=== PATIENT | female | born 1935 ===

== ENCOUNTER 2019-03-29 19:07 | Inpatient (IN) | payer MEDICARE, MEDICAID ==
[2019-03-29 19:07] VITALS: BMI 21.2
[2019-03-29 21:18] LABS: BASO % 0.5 % (0.0-2.0); EOS % 0.7 % (0.0-4.0); LYMPH # 0.6 K/uL (1.0-4.3); LYMPH % 12.2 % (20.0-40.0); MEAN CELL VOLUME 92.3 fl (81.0-99.0); MEAN CORPUSCULAR HEMOGLOBIN 29.2 pg (27.0-31.0); MEAN CORPUSCULAR HGB CONC 31.6 g/dL (33.0-37.0); MEAN PLATELET VOLUME 11.9 fl (7.2-11.7); MONO # 0.2 K/uL (0.0-0.8); MONO % 4.6 % (0.0-10.0); NRBC % 0.1 % (0.0-0.0); RBC 3.09 Mil/uL (3.80-5.20); RED CELL DISTRIBUTION WIDTH 19.2 % (11.5-14.5); WHITE BLOOD COUNT 4.9 K/uL (4.8-10.8)
[2019-03-29 21:25] LABS: INR 1.5; PROTHROMBIN TIME 17.1 Seconds (9.8-13.1)
[2019-03-29 21:27] LABS: ALB/GLOB RATIO 0.7 (1.0-2.1); ALBUMIN 3.3 g/dL (3.5-5.0); ALT/SGPT 45 U/L (9-52); AST/SGOT 73 U/L (14-36); BLOOD UREA NITROGEN 26 mg/dl (7-17); CALCIUM 8.1 mg/dL (8.4-10.2); GFR NON-AFRICAN AMERICAN > 60; PARTIAL THROMBOPLASTIN TIME 32.1 Seconds (25.6-37.1)
--- NOTE | 2019-03-29 22:09 | ED PDOC ---
HPI: Altered Mental Status Time Seen by Provider: 03/29/19 19:17 Chief Complaint (Nursing): Altered Mental Status Chief Complaint (Provider): fatigue Additional Complaint(s): pt minimally conversive at baseline. reported to EMS that pt is more tired and fatigued than her baseline. Past Medical History Reviewed: Historical Data, Nursing Documentation, Vital Signs Vital Signs: Last Vital Signs Temp 97.7 F 03/29/19 19:11 Pulse 78 03/29/19 19:11 Resp 18 03/29/19 19:11 BP 149/90 03/29/19 19:11 Pulse Ox 100 03/29/19 19:11 Primary Care Provider: Fahad Haque - Medical History PMH: Arthritis (SJOGRENS SYNDROME), Cardia Arrhythmia (afib on coumadin at home), CHF, Dementia, Depression, HTN, Hypercholesterolemia, Hypothyroidism Denies: Alzheimer's Disease, Anemia, Anxiety, Asthma, Bipolar Disorder, Bronchitis, COPD, Crohn's Disease, Diverticulitis, Emphysema, Fibromyalgia, Fr actures, Gastrointestinal Ulcer, Gall Bladder Disease, HIV, Hyperthyroidism, Kidney Stones, Migraine, Mitral Valve Prolapse, Osteoporosis, Pancreatitis, Paranoia, Parkinson's Disease, Peripheral Edema, Pneumonia, Post Traumatic Stress Disorder, Chronic Kidney Disease, Schizophrenia, Seizures, Sickle Cell Disease, Sexually Transmitted Disease, Sleep Apnea, TIA - Surgical History Surgical History: Denies: Appendectomy, Cholecystectomy, Coronary Stent, Pacemaker - Family History Family History: States: Unknown Family Hx - Living Arrangements Living Arrangements: Longterm/Assist Lvng - Immunization History Hx Tetanus Toxoid Vaccination: No Hx Influenza Vaccination: No Hx Pneumococcal Vaccination: No - Home Medications Home Medications: Ambulatory Orders Medication Instructions Recorded Apixaban [Eliquis] 2.5 mg PEG DAILY 07/06/17 Atorvastatin [Lipitor] 80 mg PEG DAILY 07/06/17 Carvedilol [Coreg] 25 mg PEG BID 07/06/17 Levothyroxine [Synthroid] 50 mcg PEG DAILY 07/06/17 cycloSPORINE [Restasis] 0.05 % OP DAILY 07/06/17 Memantine [Namenda] 10 mg PEG BID 09/03/17 Acetaminophen [Tylenol (Renal)] 650 mg PEG Q4 PRN 03/30/19 Acetaminophen [Tylenol (Renal)] 650 mg PEG Q4 PRN 03/30/19 Aspirin [Ecotrin] 81 mg PEG DAILY 03/30/19 Bisacodyl [Fast Relief Laxative] 10 mg DE DAILY PRN 03/30/19 Clonidine [Catapres-Tts 1] 1 patch TOP QWK 03/30/19 Doxycycline Oral Susp [Vibramycin 50 mg PEG Q12 03/30/19 Oral Susp] Famotidine [Pepcid] 20 mg PEG DAILY 03/30/19 Lisinopril [Zestril] 20 mg PEG DAILY 03/30/19 Magnesium Hydroxide [Milk Of 30 ml PEG HS PRN 03/30/19 Magnesia] Multivit,Tx with Iron,Minerals 1 tab PEG DAILY 03/30/19 [Therems-M] Pilocarpine [Salagen Tab] 5 mg PEG DAILY 03/30/19 amLODIPine [Norvasc] 5 mg PEG DAILY 03/30/19 - Allergies Allergies/Adverse Reactions: Allergies Allergy/AdvReac Type Severity Reaction Status Date / Time No Known Allergies Allergy Verified 03/29/19 19:15 Review of Systems Review Of Systems: ROS cannot be obtained secondary to pt's inabilty to answer questions. Physical Exam - Reviewed Nursing Documentation Reviewed: Yes Vital Signs Reviewed: Yes - Physical Exam Appears: Positive for: Non-toxic, No Acute Distress Head Exam: Positive for: ATRAUMATIC, NORMOCEPHALIC Skin: Positive for: Warm, Dry, Pallor Eye Exam: Positive for: EOMI, PERRL ENT: Positive for: Other (tacky mucus membranes) Neck: Positive for: Painless ROM, Supple Cardiovascular/Chest: Positive for: Regular Rate, Rhythm. Negative for: Murmur Respiratory: Positive for: Normal Breath Sounds. Negative for: Respiratory Distress Gastrointestinal/Abdominal: Positive for: Soft. Negative for: Tenderness Extremity: Positive for: Normal ROM, Other (moving extremities in response to pain equally). Negative for: Deformity Neurological/Psych: Positive for: Lethargic, Other (localizing pain, nonverbal). Negative for: Oriented, Motor/Sensory Deficits, Facial Droop - Laboratory Results Result Diagrams: 03/29/19 21:04 03/29/19 21:04 Lab Results: PT 17.1 Seconds (9.8-13.1) H 03/29/19 21:04 INR 1.5 03/29/19 21:04 APTT 32.1 Seconds (25.6-37.1) 03/29/19 21:04 Troponin I 0.0220 ng/mL (0.00-0.120) 03/29/19 21:04 Total Bilirubin 0.6 mg/dl (0.2-1.3) 03/29/19 21:04 AST 73 U/L (14-36) H 03/29/19 21:04 ALT 45 U/L (9-52) 03/29/19 21:04 Alkaline Phosphatase 88 U/L (38-126) 03/29/19 21:04 Total Protein 7.8 G/DL (6.3-8.2) 03/29/19 21:04 Albumin 3.3 g/dL (3.5-5.0) L 03/29/19 21:04 Globulin 4.5 gm/dL (2.2-3.9) H 03/29/19 21:04 Albumin/Globulin Ratio 0.7 (1.0-2.1) L 03/29/19 21:04 - ECG O2 Sat by Pulse Oximetry: 100 Medical Decision Making Medical Decision Makin CT Head W/O Contrast FINDINGS: BRAIN: No acute intraparenchymal hemorrhage. No mass lesion. No CT evidence for acute territorial infarct. No midline shift or extra-axial collections. There is moderate diffuse age-appropriate cerebral and cerebellar atrophy noted. A zone of decreased attenuation is seen primarily involving the white matter tracts in the left frontal region. These findings are thought probably compatible with old ischemic infarction. There are bilateral periventricular and subcortical white matter hypolucencies compatible with mild chronic microvascular disease. VENTRICLES: No hydrocephalus. VASCULAR: Atherosclerotic vascular plaquing is seen within the carotid siphons bilaterally. ORBITS: The orbits are unremarkable. SINUSES AND MASTOIDS: The paranasal sinuses and mastoid air cells are clear. BONES: No fracture. SOFT TISSUES: Unremarkable. IMPRESSION: 1. No acute intracranial abnormality. 2. Moderate age-appropriate cerebral and cerebellar atrophy noted. 3. Evidence of mild chronic microvascular disease. 4. 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 2199 Labs cw mild anemia and mild renal insufficiency and hypothyroid (increasing TSH) DW Dr Smith for Dr Bhakta. Disposition - Clinical Impression Clinical Impression: Hypothyroid, Altered mental status Counseled Patient/Family Regarding: Studies Performed, Diagnosis - Disposition Disposition Time: 23:00 Condition: FAIR
[2019-03-30 03:48] LABS: T3 0.765 nmol/L (1.49-2.60)
[2019-03-30] MEDS ORDERED: Magnesium Hydroxide Susp 30 ml UD PEG PRN (06:36)
[2019-03-30] MEDS ORDERED: Acetaminophen 650mg/20.3ml solution UD PEG PRN ×2 (06:36)
[2019-03-30] MEDS: Levothyroxine 75 MCG TAB PEG SCH (07:13)
[2019-03-30] MEDS ORDERED: CYCLOSPORINE 0.05% OP SCH (09:00)
[2019-03-30] MEDS: Multivitamin With Minerals Tab PO SCH (09:29)
[2019-03-30] MEDS: Famotidine 40 MG/5 ML PEG SCH (09:29)
--- NOTE | 2019-03-30 10:12 | CT ---
Date of service: 03/29/2019 PROCEDURE: CT HEAD WITHOUT CONTRAST. HISTORY: Weakness COMPARISON: No prior study available comparison. TECHNIQUE: Axial computed tomography images were obtained through the head/brain without intravenous contrast. Radiation dose: Total exam DLP = 725.14 mGy-cm. This CT exam was performed using one or more of the following dose reduction techniques: Automated exposure control, adjustment of the mA and/or kV according to patient size, and/or use of iterative reconstruction technique. FINDINGS: HEMORRHAGE: No acute parenchymal, subarachnoid nor extra-axial hemorrhage. BRAIN: Extensive and severe chronic periventricular white matter ischemic changes with more discrete large chronic left frontal lobe infarct. There also chronic appearing bilateral basal nuclei infarcts Moderate to significant generalized volume loss. VENTRICLES: No obstructive hydrocephalus. CALVARIUM: No acute calvarial fractures. PARANASAL SINUSES: Unremarkable as visualized. No significant inflammatory changes. MASTOID AIR CELLS: Opacification both mastoid air complexes with partial opacification of both middle ear canals. Mild mucosal thickening ethmoid air complex. Frontal sinuses are hypoplastic.. OTHER FINDINGS: None. IMPRESSION: Extensive and severe chronic periventricular white matter ischemic changes with more discrete large chronic left frontal lobe infarct. There also chronic appearing bilateral basal nuclei infarcts Moderate to significant generalized volume loss.
--- NOTE | 2019-03-30 10:21 | RAD ---
Date of service: 03/29/2019 HISTORY: wewakness COMPARISON: No prior. TECHNIQUE: 1 view obtained. FINDINGS: LUNGS: Hazy opacity in the right mid to lower lung field consistent with some combination of small to medium-sized effusion and mild atelectasis and or infiltrate. Suspect mild left basilar atelectasis. PLEURA: No significant pleural effusion identified, no pneumothorax apparent. CARDIOVASCULAR: There is aortic atherosclerotic calcification present. Cardiomegaly.. No pulmonary vascular congestion. OSSEOUS STRUCTURES: No significant abnormalities. VISUALIZED UPPER ABDOMEN: Normal. OTHER FINDINGS: None. IMPRESSION: Hazy opacity in the right mid to lower lung field consistent with some combination of small to medium-sized effusion and mild atelectasis and or infiltrate. Suspect mild left basilar atelectasis.
--- NOTE | 2019-03-30 11:48 | CARD ---
APPROVED REPORT Date of service: 03/29/2019 EKG Measurement Heart [id number] <Conclusion> Atrial fibrillation Nonspecific T wave abnormality Abnormal ECG
--- NOTE | 2019-03-30 12:28 | CARD ---
APPROVED REPORT Date of service: 03/30/2019 EXAM: Two-dimensional and M-mode echocardiogram with Doppler and color Doppler. Other Information Quality : AverageRhythm : Atrial FibrillationNSR INDICATION Hypertension/HCVD Congestive Heart Failure 2D DIMENSIONS IVSd0.89 (0.7-1.1cm)LVDd3.71 (3.9-5.9cm) LVOT Diameter1.71 (1.8-2.4cm)PWd1.48 (0.7-1.1cm) IVSs1.08 (0.8-1.2cm)LA Tjitel48 (18-58mL) LVDs3.11 (2.5-4.0cm)FS (%) 16.1 % PWs1.41 (0.8-1.2cm)SV16.00 ml LVEF (%)37.2 (>50%)CO1.32 L/min M-Mode DIMENSIONS Left Atrium (MM)5.20 (2.5-4.0cm)Aortic Root2.40 (2.2-3.7cm) Aortic Cusp Exc.1.50 (1.5-2.0cm) Aortic Valve AoV Peak Eyaknuad772.1cm/Kyaw Peak GR.8mmHgLVOT Peak Ypfrxigb79.4cm/s JANET (VMAX)0.72cm2 Mitral Valve MV E Zhvfiunj63.8cm/sMV E Peak Gr.35mmHgMV DECEL [id number] MV A Fbtdrnks47.8cm/sMV UWP94wnX/A ratio2.5 MVA (PHT)3.44cm2 TDI Medial E' Peak V6.52cm/sE/Lateral E'0.0E/Medial E'11.8 Pulmonary Valve PV Peak Argtjdrn49.7cm/s Tricuspid Valve TR Peak Effqlzbe457bk/sTR Peak Gr.51hvOlWZCW73baLp LEFT VENTRICLE The left ventricle is normal size. There is normal left ventricular wall thickness. The LV systolic function is mildly to moderately impaired. The estimated ejection fraction is 40-45% There is mild anterolateral wall hypokinesis. [place] is akinetic. The left ventricular diastolic function cannot be assessed due to underlying atrial fibrillation. No left ventricle thrombus noted on this study. There is no ventricular septal defect visualized. There is no left ventricular aneurysm. There is no mass noted in the left ventricle. RIGHT VENTRICLE The right ventricle is normal size. There is normal right ventricular wall thickness. The right ventricular systolic function is normal. ATRIA The left atrium is moderate to severely dilated. The right atrium is dilated. The interatrial septum is intact with no evidence for an atrial septal defect. AORTIC VALVE The aortic valve is normal in structure. No aortic regurgitation is present. There is no aortic valvular stenosis. There is no aortic valvular vegetation. MITRAL VALVE The mitral valve is normal in structure. There is no evidence of mitral valve prolapse. There is no mitral valve stenosis. There is mild mitral valve regurgitation noted. TRICUSPID VALVE The tricuspid valve is normal in structure. There is mild to moderate tricuspid valve regurgitation noted. RVSP is calculated at 42 mm Hg. There is no tricuspid valve prolapse or vegetation. There is no tricuspid valve stenosis. PULMONIC VALVE The pulmonary valve is normal in structure. There is mild pulmonic valvular regurgitation. There is no pulmonic valvular stenosis. GREAT VESSELS The aortic root is normal in size. The ascending aorta is normal in size. The pulmonary artery is normal. The IVC is normal in size and collapses >50% with inspiration. PERICARDIAL EFFUSION There is no pericardial effusion. There is no pleural effusion. <Conclusion> Technically difficult study. The LV systolic function is mildly to moderately impaired. The estimated ejection fraction is 40-45% The left ventricular diastolic function cannot be assessed due to underlying atrial fibrillation. The left atrium is moderate to severely dilated. The right atrium is dilated. There is mild mitral valve regurgitation noted. There is mild to moderate tricuspid valve regurgitation noted. RVSP is calculated at 42 mm Hg.
--- NOTE | 2019-03-30 14:28 | CP.PCM.CON ---
History of Present Illness - History of Present Illness History of Present Illness: Neurology Consultation Note: consult requested by Dr. Smith Mrs. Alexandra is an 83-year-old woman with a past medical history of atrial fibrillation (on coumadin), CHF, Dementia, Depression, HTN, Hypercholesterolemia, Hypothyroidism, who is minimally conversant at baseline, but was brought in by EMS for being less interactive than usual. CT head showed a chronic left frontal lobe infarct as well as multiple other chronic ischemic c hanges. Labs showed elevated TSH. The patient continues to be confused and does not provide any history. According to EMS, the patient had a seizure during transport. Review of Systems - Review of Systems Systems not reviewed;Unavailable: Dementia, Altered Mental Status Past Patient History - Infectious Disease Hx of Infectious Diseases: None - Past Medical History & Family History Past Medical History?: Yes - Past Social History Smoking Status: Never Smoked - CARDIAC Hx Cardiac Disorders: Yes Hx Atrial Fibrillation: Yes Hx Cardia Arrhythmia: Yes (afib on eliquis at [facility] [facility]) Hx Congestive Heart Failure: Yes Hx Hypercholesterolemia: Yes Hx Hypertension: Yes Hx Mitral Valve Prolapse: No Hx Pacemaker: No Hx Peripheral Edema: No - PULMONARY Hx Asthma: No Hx Bronchitis: No Hx Chronic Obstructive Pulmonary Disease (COPD): No Hx Emphysema: No Hx Pneumonia: Yes (last hospital admission for aspiration PNA at [facility]) Hx Pulmonary Edema: No Hx Pulmonary Embolism: No Hx Respiratory Aspiration: No Hx Respiratory Tract Infection: No Hx Sleep Apnea: No Hx Tuberculosis: No - NEUROLOGICAL Hx Neurological Disorder: Yes Hx Alzheimer's Disease: No HX Cerebrovascular Accident: Yes Hx Dementia: Yes Hx Migraine: No Hx Parkinson's Disease: No Hx Seizures: Yes (as per transfer sheet, for eval of seizure) Hx Transient Ischemic Attacks (TIA): No - HEENT Hx HEENT Problems: Yes 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) Other/Comment: SJOGRENS SYNDROME - RENAL Hx Chronic Kidney Disease: No Hx Kidney Stones: No - ENDOCRINE/METABOLIC Hx Endocrine Disorders: Yes Hx Hyperthyroidism: No Hx Hypothyroidism: Yes - HEMATOLOGICAL/ONCOLOGICAL Hx Blood Disorders: Yes Hx AIDS: No Hx Anemia: Yes Hx Human Immunodeficiency Virus (HIV): No - INTEGUMENTARY Hx Dermatological Problems: No Other/Comment: Rash noted to back and perineum - MUSCULOSKELETAL/RHEUMATOLOGICAL Hx Musculoskeletal Disorders: Yes Hx Arthritis: Yes Hx Falls: No - GASTROINTESTINAL Hx Gastrointestinal Disorders: No Hx Crohn's Disease: No Hx Diverticulitis: No Hx Gall Bladder Disease: No Hx Pancreatitis: No - GENITOURINARY/GYNECOLOGICAL Hx Genitourinary Disorders: Yes Hx Incontinence: Yes Hx Sexually Transmitted Disorders: No - PSYCHIATRIC Hx Psychophysiologic Disorder: Yes Hx Depression: Yes Hx Substance Use: No - SURGICAL HISTORY Hx Surgeries: No Hx Appendectomy: No Hx Cholecystectomy: No Hx Coronary Stent: No - ANESTHESIA Hx Anesthesia: No Hx Anesthesia Reactions: No Hx Malignant Hyperthermia: No Has any member of the family had a problem w/ anesthesia?: No Meds Allergies/Adverse Reactions: Allergies Allergy/AdvReac Type Severity Reaction Status Date / Time No Known Allergies Allergy Verified 03/29/19 19:15 - Medications Medications: Current Medications Acetaminophen (Tylenol 650mg/20.3ml Solution Ud) 650 mg PEG Q4 PRN PRN Reason: Pain, Mild (1-3) Acetaminophen (Tylenol 650mg/20.3ml Solution Ud) 650 mg PEG Q4 PRN PRN Reason: FEVER>100.4 Amlodipine Besylate (Norvasc) 5 mg PEG DAILY [facility] Last Admin: 03/30/19 09:28 Dose: 5 mg Apixaban (Eliquis) 2.5 mg PEG BID [facility]; Protocol Last Admin: 03/30/19 09:28 Dose: 2.5 mg Aspirin (Aspirin Chewable) 81 mg PEG DAILY [facility] Last Admin: 03/30/19 09:35 Dose: 81 mg Atorvastatin Calcium (Lipitor) 80 mg PEG DAILY [facility] Last Admin: 03/30/19 09:28 Dose: 80 mg Bisacodyl (Dulcolax) 10 mg WI DAILY PRN PRN Reason: Constipation Carvedilol (Coreg) 25 mg PEG BID [facility] Last Admin: 03/30/19 09:28 Dose: 25 mg Clonidine HCl (Catapres Tts1 0.1 Mg/24 Hr) 1 patch TD QWK [facility] Famotidine (Pepcid) 20 mg PEG DAILY [facility] Last Admin: 03/30/19 09:29 Dose: 20 mg Home Med (Cyclosporine [Restasis]) 0.05 % OP DAILY [facility] Home Med (Pilocarpine [Salagen Tab]) 5 mg PEG DAILY [facility] Levothyroxine Sodium (Synthroid) 75 mcg PEG DAILY@0630 [facility] Last Admin: 03/30/19 07:13 Dose: 75 mcg Lisinopril (Zestril) 20 mg PEG DAILY [facility] Last Admin: 03/30/19 09:29 Dose: 20 mg Magnesium Hydroxide (Milk Of Magnesia) 30 ml PEG HS PRN PRN Reason: Constipation Memantine (Namenda) 10 mg PEG BID [facility] Last Admin: 03/30/19 09:28 Dose: 10 mg Multivitamins/Minerals (Therapeutic-M Tab) 1 tab PO DAILY [facility] Last Admin: 03/30/19 09:29 Dose: 1 tab Physical Exam - Constitutional Appears: Chronically Ill - Head Exam Head Exam: ATRAUMATIC, NORMAL INSPECTION, NORMOCEPHALIC - Eye Exam Eye Exam: EOMI, Normal appearance, PERRL Pupil Exam: NORMAL ACCOMODATION, PERRL - ENT Exam ENT Exam: Mucous Membranes Moist, Normal Exam - Neck Exam Neck exam: Positive for: Normal Inspection - Respiratory Exam Respiratory Exam: Clear to Auscultation Bilateral, NORMAL BREATHING PATTERN - Cardiovascular Exam Cardiovascular Exam: REGULAR RHYTHM, +S1, +S2 - GI/Abdominal Exam GI & Abdominal Exam: Normal Bowel Sounds, Soft. absent: Tenderness - Extremities Exam Extremities exam: Positive for: normal inspection - Back Exam Back exam: NORMAL INSPECTION - Neurological Exam Neurological exam: Altered, CN II-XII Intact, Reflexes Normal Additional comments: Somnolent, but arousable, Aphasic/mute, right side hemiplegia, right side hyper- reflexia, sensation is diminished. - Psychiatric Exam Psychiatric exam: Normal Affect, Normal Mood - Skin Skin Exam: Dry, Intact, Normal Color, Warm Results - Vital Signs Recent Vital Signs: Last Vital Signs Temp 97.1 F L 03/30/19 08:15 Pulse 83 03/30/19 09:29 Resp 20 03/30/19 08:15 BP 135/72 03/30/19 09:29 Pulse Ox 98 03/30/19 08:15 - Labs Result Diagrams: 03/29/19 21:04 03/29/19 21:04 Labs: Laboratory Results - last 24 hr 03/29/19 03/29/19 03/29/19 21:04 21:04 21:04 WBC 4.9 RBC 3.09 L Hgb 9.0 L Hct 28.5 L MCV 92.3 MCH 29.2 MCHC 31.6 L RDW 19.2 H Plt Count 105 L MPV 11.9 H Neut % (Auto) 82.0 H Lymph % (Auto) 12.2 L [place] % (Auto) 4.6 Eos % (Auto) 0.7 Baso % (Auto) 0.5 Neut # (Auto) 4.0 Lymph # (Auto) 0.6 L [place] # (Auto) 0.2 Eos # (Auto) 0.0 Baso # (Auto) 0.0 PT 17.1 H INR 1.5 APTT 32.1 Sodium 138 Potassium 3.6 Chloride 100 Carbon Dioxide 32 H Anion Gap 10 BUN 26 H Creatinine 0.5 L Est GFR ( Amer) > 60 Est GFR (Non-Af Amer) > 60 Random Glucose 97 Calcium 8.1 L Phosphorus 3.6 Magnesium 1.7 Total Bilirubin 0.6 AST 73 H ALT 45 Alkaline Phosphatase 88 Troponin I 0.0220 Total Protein 7.8 Albumin 3.3 L Globulin 4.5 H Albumin/Globulin Ratio 0.7 L Free T4 Thyroxine (T4) Total T3 TSH 3rd Generation 13.60 H Blood Type Antibody Screen BBK History Checked 03/29/19 03/30/19 03/30/19 21:04 03:00 03:00 WBC RBC Hgb Hct MCV MCH MCHC RDW Plt Count MPV Neut % (Auto) Lymph % (Auto) [place] % (Auto) Eos % (Auto) Baso % (Auto) Neut # (Auto) Lymph # (Auto) [place] # (Auto) Eos # (Auto) Baso # (Auto) PT INR APTT Sodium Potassium Chloride Carbon Dioxide Anion Gap BUN Creatinine Est GFR ( Amer) Est GFR (Non-Af Amer) Random Glucose Calcium Phosphorus Magnesium Total Bilirubin AST ALT Alkaline Phosphatase Troponin I Total Protein Albumin Globulin Albumin/Globulin Ratio Free T4 1.59 Thyroxine (T4) 7.51 Total T3 0.765 L TSH 3rd Generation Blood Type O POSITIVE Antibody Screen Negative BBK History Checked No verified bt Assessment & Plan (1) Seizure Assessment and Plan: She is likely post-ictal after seizure. I recommend starting Keppra 500 mg BID for prophylaxis. Continue Eliquis for secondary stroke prevention. Thank you for this consultation. Status: Acute
--- NOTE | 2019-03-30 17:04 | CP.PCM.HP ---
History of Present Illness - History of Present Illness History of Present Illness: CC: AMS. 83 y/o F, PMHx: Old CVA, Dementia, A Fib, HTN, CHF, HLD, Hypothyroidism, Sjogren's syndrome, Hx Lung Mass. Pt was brought to [facility] [place] on 03/29/19 to be evaluated for AMS ( more than her base line) associated to fat igue/tiredness on DOA with no improvement. Worsening symptoms: As per EMS, Pt had Seizure activity in the field. Aggravated factor: Movements/exercise. No: Fever, chills, n/v/d, abdominal pain, urinary symptoms, trauma, injury, CP, palpitations, SOB, cough, sick contact. CXR: Hazy opacity R mid to lower lung field, consistent with medium effusion/atelectasis or infiltrate. Head CT: Large chronic L frontal lobe infarct. EKG: A Fib. Echo: LVEF 40-45%, A Fib, L Atrium mode-severely dilated, R Atrium dilated, mild MV and Tricuspid valve regurgitation. Present on Admission - Present on Admission Any Indicators Present on Admission: No Review of Systems - Review of Systems Systems not reviewed;Unavailable: Acuity of Condition, Altered Mental Status Past Patient History - Infectious Disease Hx of Infectious Diseases: None - Past Medical History & Family History Past Medical History?: Yes Pertinent Family History: Unknown - Past Social History Smoking Status: Never Smoked Alcohol: None Drugs: Denies Home Situation {Lives}: Jail - CARDIAC Hx Cardiac Disorders: Yes Hx Cardia Arrhythmia: Yes (afib on coumadin at home) Hx Congestive Heart Failure: Yes Hx Hypercholesterolemia: Yes Hx Hypertension: Yes Hx Mitral Valve Prolapse: No Hx Pacemaker: No Hx Peripheral Edema: No - PULMONARY Hx Respiratory Disorders: No Hx Asthma: No Hx Bronchitis: No Hx Chronic Obstructive Pulmonary Disease (COPD): No Hx Emphysema: No Hx Pneumonia: No Hx Sleep Apnea: No - NEUROLOGICAL Hx Neurological Disorder: Yes Hx Alzheimer's Disease: No Hx Dementia: Yes Hx Migraine: No Hx Parkinson's Disease: No Hx Seizures: No Hx Transient Ischemic Attacks (TIA): No - HEENT Hx HEENT Problems: Yes 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) Other/Comment: SJOGRENS SYNDROME - RENAL Hx Chronic Kidney Disease: No Hx Kidney Stones: No - ENDOCRINE/METABOLIC Hx Endocrine Disorders: Yes Hx Hyperthyroidism: No Hx Hypothyroidism: Yes - HEMATOLOGICAL/ONCOLOGICAL Hx Blood Disorders: No Hx Anemia: No Hx Human Immunodeficiency Virus (HIV): No Hx Sickle Cell Disease: No - INTEGUMENTARY Hx Dermatological Problems: No Other/Comment: Rash noted to back and perineum - MUSCULOSKELETAL/RHEUMATOLOGICAL Hx Musculoskeletal Disorders: Yes Hx Arthritis: Yes (SJOGRENS SYNDROME) Hx Fractures: No Hx Osteoporosis: No - GASTROINTESTINAL Hx Gastrointestinal Disorders: No Hx Crohn's Disease: No Hx Diverticulitis: No Hx Gall Bladder Disease: No Hx Pancreatitis: No - GENITOURINARY/GYNECOLOGICAL Hx Sexually Transmitted Disorders: No - PSYCHIATRIC Hx Psychophysiologic Disorder: Yes Hx Anxiety: No Hx Bipolar Disorder: No Hx Depression: Yes Hx Paranoia: No Hx Post Traumatic Stress Disorder: No Hx Schizophrenia: No - SURGICAL HISTORY Hx Surgeries: No Hx Appendectomy: No Hx Cholecystectomy: No Hx Coronary Stent: No - ANESTHESIA Hx Anesthesia: No Hx Anesthesia Reactions: No Hx Malignant Hyperthermia: No Has any member of the family had a problem w/ anesthesia?: No Meds Allergies/Adverse Reactions: Allergies Allergy/AdvReac Type Severity Reaction Status Date / Time No Known Allergies Allergy Verified 03/29/19 19:15 Physical Exam - Constitutional Appears: Chronically Ill - Head Exam Head Exam: NORMAL INSPECTION - Eye Exam Eye Exam: PERRL - ENT Exam Additional comments: Hard of hearing on left - Neck Exam Neck exam: Positive for: Normal Inspection - Respiratory Exam Respiratory Exam: Decreased Breath Sounds (at bases) - Cardiovascular Exam Cardiovascular Exam: Irregular Rhythm - GI/Abdominal Exam GI & Abdominal Exam: Normal Bowel Sounds, Soft Additional comments: Peg-tube - Extremities Exam Extremities exam: Positive for: normal inspection - Back Exam Additional comments: Rash on sacrum - Neurological Exam Additional comments: Eyes open, non verbal, generalized weakness, non following commands, R side hemiplegia. Results - Vital Signs Recent Vital Signs: Last Vital Signs Temp 97.2 F L 03/30/19 16:06 Pulse 83 03/30/19 16:06 Resp 20 03/30/19 16:06 BP 119/78 03/30/19 16:06 Pulse Ox 96 03/30/19 16:06 reviewed [place] - Labs Result Diagrams: 03/29/19 21:04 03/29/19 21:04 Labs: Laboratory Results - last 24 hr 03/29/19 03/29/19 03/29/19 21:04 21:04 21:04 WBC 4.9 RBC 3.09 L Hgb 9.0 L Hct 28.5 L MCV 92.3 MCH 29.2 MCHC 31.6 L RDW 19.2 H Plt Count 105 L MPV 11.9 H Neut % (Auto) 82.0 H Lymph % (Auto) 12.2 L [place] % (Auto) 4.6 Eos % (Auto) 0.7 Baso % (Auto) 0.5 Neut # (Auto) 4.0 Lymph # (Auto) 0.6 L [place] # (Auto) 0.2 Eos # (Auto) 0.0 Baso # (Auto) 0.0 PT 17.1 H INR 1.5 APTT 32.1 Sodium 138 Potassium 3.6 Chloride 100 Carbon Dioxide 32 H Anion Gap 10 BUN 26 H Creatinine 0.5 L Est GFR ( Amer) > 60 Est GFR (Non-Af Amer) > 60 Random Glucose 97 Calcium 8.1 L Phosphorus 3.6 Magnesium 1.7 Total Bilirubin 0.6 AST 73 H ALT 45 Alkaline Phosphatase 88 Troponin I 0.0220 Total Protein 7.8 Albumin 3.3 L Globulin 4.5 H Albumin/Globulin Ratio 0.7 L Free T4 Thyroxine (T4) Free T3 pg/mL Total T3 TSH 3rd Generation 13.60 H Blood Type Antibody Screen BBK History Checked 03/29/19 03/30/19 03/30/19 21:04 03:00 03:00 WBC RBC Hgb Hct MCV MCH MCHC RDW Plt Count MPV Neut % (Auto) Lymph % (Auto) [place] % (Auto) Eos % (Auto) Baso % (Auto) Neut # (Auto) Lymph # (Auto) [place] # (Auto) Eos # (Auto) Baso # (Auto) PT INR APTT Sodium Potassium Chloride Carbon Dioxide Anion Gap BUN Creatinine Est GFR ( Amer) Est GFR (Non-Af Amer) Random Glucose Calcium Phosphorus Magnesium Total Bilirubin AST ALT Alkaline Phosphatase Troponin I Total Protein Albumin Globulin Albumin/Globulin Ratio Free T4 1.59 Thyroxine (T4) 7.51 Free T3 pg/mL 2.70 L Total T3 0.765 L TSH 3rd Generation Blood Type O POSITIVE Antibody Screen Negative BBK History Checked No verified bt reviewed J.P. - EKG Data EKG comments: reviewed J.P. - Imaging and Cardiology Chest x-ray Status: Report reviewed by me CT scan - head Status: Report reviewed by me ([place]) Echocardiogram Status: Report reviewed by me ([place]) Assessment & Plan (1) Altered mental status Status: Acute Priority: High (2) Seizure Status: Acute Priority: High (3) A-fib Status: Chronic Priority: High (4) History of CVA with residual deficit Status: Chronic Priority: High (5) Dementia Status: Chronic Priority: High (6) Hyperlipidemia Status: Acute (7) Hypothyroid Status: Acute - Assessment and Plan (Free Text) Plan: F/U U C-S, continue in Eliquis, Coreg, ASA, Norvasc, Zestril, Clonidine, Keppra, Lipitor, Namenda and rest of Tx. OT/PT eval. Neurology consult appreciated. - Date & Time Date: 03/30/19 Time: 16:30
[2019-03-30] MEDS: Artificial Tears Opht Soln OU SCH ×2 (18:55→21:02)
[2019-03-30 19:18] LABS: URINE BACTERIA FEW (<OCC); URINE BILIRUBIN NEGATIVE (NEGATIVE); URINE BLOOD NEGATIVE (NEGATIVE); URINE CLARITY CLOUDY (Clear); URINE COLOR YELLOW (YELLOW); URINE GLUCOSE (UA) NEG (NEGATIVE); URINE LEUKOCYTE ESTERASE NEG Leu/uL (Negative); URINE PROTEIN 30 mg/dL (NEGATIVE); URINE UROBILINOGEN 0.2-1.0 mg/dL (0.2-1.0)
[2019-03-30] MEDS: levETIRAcetam 500 MG in Sodium Chloride 0.9% 100 ML IVPB SCH (20:49)
[2019-03-31] MEDS: Levothyroxine 75 MCG TAB PEG SCH (06:43)
[2019-03-31] MEDS: levETIRAcetam 500 MG in Sodium Chloride 0.9% 100 ML IVPB SCH ×2 (09:20→20:17)
[2019-03-31] MEDS: Famotidine 40 MG/5 ML PEG SCH (09:24)
[2019-03-31] MEDS: Multivitamin With Minerals Tab PO SCH (09:25)
[2019-03-31] MEDS: Artificial Tears Opht Soln OU SCH ×4 (09:25→21:22)
[2019-03-31] MEDS ORDERED: Levothyroxine 25 MCG TAB PEG ONE (17:15)
--- NOTE | 2019-03-31 17:44 | CP.PCM.PN ---
Subjective - Date & Time of Evaluation Date of Evaluation: 03/31/19 Time of Evaluation: 16:30 - Subjective Subjective: F/U AMS Eyes open, not following commands, non verbal Objective - Vital Signs/Intake and Output Vital Signs (last 24 hours): Temp Pulse Resp BP Pulse Ox 97.3 F L 87 20 136/81 95 03/31/19 16:34 03/31/19 17:22 03/31/19 16:34 03/31/19 17:22 03/31/19 16:34 - Medications Medications: Current Medications Acetaminophen (Tylenol 650mg/20.3ml Solution Ud) 650 mg PEG Q4 PRN PRN Reason: Pain, Mild (1-3) Acetaminophen (Tylenol 650mg/20.3ml Solution Ud) 650 mg PEG Q4 PRN PRN Reason: FEVER>100.4 Amlodipine Besylate (Norvasc) 5 mg PEG DAILY [facility] Last Admin: 03/31/19 09:24 Dose: 5 mg Apixaban (Eliquis) 2.5 mg PEG BID [facility]; Protocol Last Admin: 03/31/19 17:23 Dose: 2.5 mg Artificial Tears (Artificial Tears) 2 drop OU QID [facility] Last Admin: 03/31/19 17:22 Dose: 2 drop Aspirin (Aspirin Chewable) 81 mg PEG DAILY [facility] Last Admin: 03/31/19 09:23 Dose: 81 mg Atorvastatin Calcium (Lipitor) 80 mg PEG DAILY [facility] Last Admin: 03/31/19 09:25 Dose: 80 mg Bisacodyl (Dulcolax) 10 mg [place] DAILY PRN PRN Reason: Constipation Carvedilol (Coreg) 25 mg PEG BID [facility] Last Admin: 03/31/19 17:22 Dose: 25 mg Clonidine HCl (Catapres Tts1 0.1 Mg/24 Hr) 1 patch TD QWK [facility] Clotrimazole (Lotrimin 1% Cream) 1 applic TOP BID [facility] Last Admin: 03/31/19 17:23 Dose: 1 applic Famotidine (Pepcid) 20 mg PEG DAILY [facility] Last Admin: 03/31/19 09:24 Dose: 20 mg Home Med (Cyclosporine [Restasis]) 0.05 % OP DAILY [facility] Home Med (Pilocarpine [Salagen Tab]) 5 mg PEG DAILY [facility] Levetiracetam 500 mg/ Sodium (Chloride) 105 mls @ 210 mls/hr IVPB Q12 [facility] Last Admin: 03/31/19 09:20 Dose: 210 mls/hr Levothyroxine Sodium (Synthroid) 75 mcg PEG DAILY@0630 [facility] Last Admin: 03/31/19 06:43 Dose: 75 mcg Lisinopril (Zestril) 20 mg PEG DAILY [facility] Last Admin: 03/31/19 09:23 Dose: 20 mg Magnesium Hydroxide (Milk Of Magnesia) 30 ml PEG HS PRN PRN Reason: Constipation Memantine (Namenda) 10 mg PEG BID [facility] Last Admin: 03/31/19 17:25 Dose: 10 mg Multivitamins/Minerals (Therapeutic-M Tab) 1 tab PO DAILY [facility] Last Admin: 03/31/19 09:25 Dose: 1 tab - Labs Labs: 03/29/19 21:04 03/29/19 21:04 PT 17.1 Seconds (9.8-13.1) H 03/29/19 21:04 INR 1.5 03/29/19 21:04 APTT 32.1 Seconds (25.6-37.1) 03/29/19 21:04 - Constitutional Appears: No Acute Distress, Chronically Ill - Head Exam Head Exam: NORMAL INSPECTION - Eye Exam Eye Exam: PERRL - ENT Exam Additional comments: Hard of hearing on L. - Neck Exam Neck Exam: Normal Inspection - Respiratory Exam Respiratory Exam: Decreased Breath Sounds (at bases) - Cardiovascular Exam Cardiovascular Exam: Irregular Rhythm - GI/Abdominal Exam GI & Abdominal Exam: Soft, Normal Bowel Sounds Additional comments: Peg Tube - Extremities Exam Extremities Exam: Normal Inspection - Back Exam Additional comments: Rsh on sacrum - Neurological Exam Additional comments: Eyes open, non verbal, generalized weakness, not following commands, R side hemplegia - Skin Skin Exam: Warm Assessment and Plan (1) Altered mental status Status: Acute (2) Seizure Status: Acute (3) Hyperlipidemia Status: Acute (4) History of CVA with residual deficit Status: Chronic - Assessment and Plan (Free Text) Plan: f/u EEG, continue Keppra and rest of tx.
[2019-04-01] MEDS: Levothyroxine 75 MCG TAB PEG SCH (05:51)
[2019-04-01] MEDS ORDERED: Levothyroxine 75 MCG TAB PO SCH (06:30)
[2019-04-01 07:03] LABS: HEMOGLOBIN 8.8 g/dL (12.0-16.0); MEAN CELL VOLUME 91.7 fl (81.0-99.0); MEAN CORPUSCULAR HEMOGLOBIN 29.3 pg (27.0-31.0); RBC 3.01 Mil/uL (3.80-5.20); RED CELL DISTRIBUTION WIDTH 19.5 % (11.5-14.5); WHITE BLOOD COUNT 4.2 K/uL (4.8-10.8)
[2019-04-01 07:34] LABS: BLOOD UREA NITROGEN 33 mg/dl (7-17); CALCIUM 8.2 mg/dL (8.4-10.2); GFR NON-AFRICAN AMERICAN > 60
[2019-04-01] MEDS: levETIRAcetam 500 MG in Sodium Chloride 0.9% 100 ML IVPB SCH ×2 (09:39→21:32)
[2019-04-01] MEDS: Famotidine 40 MG/5 ML PEG SCH (09:43)
[2019-04-01] MEDS: Artificial Tears Opht Soln OU SCH ×4 (09:43→21:33)
[2019-04-01] MEDS: Multivitamin With Minerals Tab PO SCH (09:43)
--- NOTE | 2019-04-01 12:19 | PCM.EEG ---
Electroencephalogram Report - Electroencephalogram Report Procedure Date: 03/31/19 Medication: Eliquis, ASA, Famotidine Interpretation: Technical Information: This was a 16 -channel EEG, 1-channel EKG routine EEG performed using an [employer] machine. Electrodes were applied using the 10/20 international placement system. Start; End; 50 Total 45 min Clinical Information: Alter mental status During resting wakefulness there was a symmetric posterior dominant rhythm at 8 Hz, 30-50 uV, which was reactive to eye opening and closing. Drowsiness (11;20) was associated with fragmentation of the posterior dominant rhythm and with slow roving eye movements. Hyperventilation was not performed. Photic stimulation was performed and there were no changes on the record. Focal abnormality; none ECG showed atrial fibrilation. Impression: This is a normal awake and drowsy electroencephalogram.
--- NOTE | 2019-04-01 13:12 | CP.PCM.PN ---
Subjective - Date & Time of Evaluation Date of Evaluation: 04/01/19 Time of Evaluation: 13:06 - Subjective Subjective: Neuro Follow-Up: Mrs. Alexandra was evaluated this afternoon at bedside. Per nursing, she was more alert today, somewhat following commands and laughing. When I saw the pt she was able to follow a few simple commands but was not verbal (did moan on/off during exam). She was awake and alert though, and appeared comfortable. Pt has baseline dementia. ROS was difficult to obtain 2/2 pt's current status. Objective - Vital Signs/Intake and Output Vital Signs (last 24 hours): Temp Pulse Resp BP Pulse Ox 97.5 F L 72 18 136/88 97 04/01/19 08:38 04/01/19 09:44 04/01/19 08:38 04/01/19 09:44 04/01/19 08:38 - Medications Medications: Current Medications Acetaminophen (Tylenol 650mg/20.3ml Solution Ud) 650 mg PEG Q4 PRN PRN Reason: Pain, Mild (1-3) Acetaminophen (Tylenol 650mg/20.3ml Solution Ud) 650 mg PEG Q4 PRN PRN Reason: FEVER>100.4 Amlodipine Besylate (Norvasc) 5 mg PEG DAILY [facility] Last Admin: 04/01/19 09:44 Dose: 5 mg Apixaban (Eliquis) 2.5 mg PEG BID [facility]; Protocol Last Admin: 04/01/19 09:43 Dose: 2.5 mg Artificial Tears (Artificial Tears) 2 drop OU QID [facility] Last Admin: 04/01/19 12:32 Dose: 2 drop Aspirin (Aspirin Chewable) 81 mg PEG DAILY [facility] Last Admin: 04/01/19 09:43 Dose: 81 mg Atorvastatin Calcium (Lipitor) 80 mg PEG DAILY [facility] Last Admin: 04/01/19 09:44 Dose: 80 mg Bisacodyl (Dulcolax) 10 mg [place] DAILY PRN PRN Reason: Constipation Carvedilol (Coreg) 25 mg PEG BID [facility] Last Admin: 04/01/19 09:40 Dose: 25 mg Clonidine HCl (Catapres Tts1 0.1 Mg/24 Hr) 1 patch TD QWK [facility] Clotrimazole (Lotrimin 1% Cream) 1 applic TOP BID [facility] Last Admin: 05/06/19 09:44 Dose: 1 applic Famotidine (Pepcid) 20 mg PEG DAILY [facility] Last Admin: 04/01/19 09:43 Dose: 20 mg Home Med (Cyclosporine [Restasis]) 0.05 % OP DAILY [facility] Home Med (Pilocarpine [Salagen Tab]) 5 mg PEG DAILY [facility] Levetiracetam 500 mg/ Sodium (Chloride) 105 mls @ 210 mls/hr IVPB Q12 [facility] Last Admin: 04/01/19 09:39 Dose: 210 mls/hr Levothyroxine Sodium (Synthroid) 75 mcg PEG DAILY@0630 [facility] Last Admin: 04/01/19 05:51 Dose: 75 mcg Lisinopril (Zestril) 20 mg PEG DAILY [facility] Last Admin: 04/01/19 09:44 Dose: 20 mg Magnesium Hydroxide (Milk Of Magnesia) 30 ml PEG HS PRN PRN Reason: Constipation Memantine (Namenda) 10 mg PEG BID [facility] Last Admin: 04/01/19 09:44 Dose: 10 mg Multivitamins/Minerals (Therapeutic-M Tab) 1 tab PO DAILY [facility] Last Admin: 04/01/19 09:43 Dose: 1 tab - Labs Labs: 04/01/19 06:15 04/01/19 06:15 PT 17.1 Seconds (9.8-13.1) H 03/29/19 21:04 INR 1.5 03/29/19 21:04 APTT 32.1 Seconds (25.6-37.1) 03/29/19 21:04 - Constitutional Appears: No Acute Distress, Other (baseline dementia; nonverbal with me; moans; follows some simple commands) - Head Exam Head Exam: ATRAUMATIC, NORMAL INSPECTION, NORMOCEPHALIC - Eye Exam Eye Exam: EOMI, Normal appearance Pupil Exam: NORMAL ACCOMODATION, PERRL - ENT Exam ENT Exam: Mucous Membranes Moist - Neck Exam Neck Exam: Full ROM, Normal Inspection - Respiratory Exam Respiratory Exam: NORMAL BREATHING PATTERN - GI/Abdominal Exam Additional comments: peg - Extremities Exam Additional comments: difficulty assessing rom as pt did not follow all commands. 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 Baseline dementia. Difficulty completing neuro assessment 2/2 pt's current mental state. Motor: Able to raise BUE, proximal strength approx 3/5, distal 3-4/5; Unable to raise BLE off bed, can move feet, distal strength 2-3/5. Does not appear to have sensory deficits No tremors or abnormal movements noted - Psychiatric Exam Additional comments: nonverbal with me, though moaned during exam follows some simple commands - Skin Skin Exam: Normal Color Assessment and Plan (1) Altered mental status Assessment & Plan: Imaging reviewed: -EEG (04/01/19): This is a normal awake and drowsy electroencephalogram. -CT Head (03/30/19): Extensive and severe chronic periventricular white matter ischemic changes with more discrete large chronic left frontal lobe infarct. There also chronic appearing bilateral basal nuclei infarcts. Moderate to significant generalized volume loss. Mrs. Alexandra's AMS could be dementia vs toxic metabolic encephalopathy vs seizure/post-ictal. If she can tolerate it, we can do a Brain MRI without contrast to evaluate for any other acute intracranial changes or stroke. May premedicate for the MRI; orders left for Ativan. If pt cannot tolerate it, please notify me ([phone]). -Continue treatment of UTI per primary. -Continue Keppra and seizure precautions. -Continue Eliquis for secondary stroke prevention. -Notify neuro for acute changes in pt's condition. Greer Alonzo, CY, [employer] TECHNICIAN d/w Dr. Gonsalves Status: Acute
--- NOTE | 2019-04-01 14:22 | CP.PCM.PN ---
Subjective - Date & Time of Evaluation Date of Evaluation: 04/01/19 Time of Evaluation: 12:30 - Subjective Subjective: F/U AMS Mombling words, follows simple commands likely squeezing hands. Objective - Vital Signs/Intake and Output Vital Signs (last 24 hours): Temp Pulse Resp BP Pulse Ox 97.5 F L 72 18 136/88 97 04/01/19 08:38 04/01/19 09:44 04/01/19 08:38 04/01/19 09:44 04/01/19 08:38 - Medications Medications: Current Medications Acetaminophen (Tylenol 650mg/20.3ml Solution Ud) 650 mg PEG Q4 PRN PRN Reason: Pain, Mild (1-3) Acetaminophen (Tylenol 650mg/20.3ml Solution Ud) 650 mg PEG Q4 PRN PRN Reason: FEVER>100.4 Amlodipine Besylate (Norvasc) 5 mg PEG DAILY [facility] Last Admin: 04/01/19 09:44 Dose: 5 mg Apixaban (Eliquis) 2.5 mg PEG BID [facility]; Protocol Last Admin: 04/01/19 09:43 Dose: 2.5 mg Artificial Tears (Artificial Tears) 2 drop OU QID [facility] Last Admin: 04/01/19 12:32 Dose: 2 drop Aspirin (Aspirin Chewable) 81 mg PEG DAILY [facility] Last Admin: 04/01/19 09:43 Dose: 81 mg Atorvastatin Calcium (Lipitor) 80 mg PEG DAILY [facility] Last Admin: 04/01/19 09:44 Dose: 80 mg Bisacodyl (Dulcolax) [address] DAILY PRN PRN Reason: Constipation Carvedilol (Coreg) 25 mg PEG BID [facility] Last Admin: 04/01/19 09:40 Dose: 25 mg Clonidine HCl (Catapres Tts1 0.1 Mg/24 Hr) 1 patch TD QWK [facility] Clotrimazole (Lotrimin 1% Cream) 1 applic TOP BID [facility] Last Admin: 04/01/19 09:44 Dose: 1 applic Famotidine (Pepcid) 20 mg PEG DAILY [facility] Last Admin: 04/01/19 09:43 Dose: 20 mg Home Med (Cyclosporine [Restasis]) 0.05 % OP DAILY [facility] Home Med (Pilocarpine [Salagen Tab]) 5 mg PEG DAILY [facility] Levetiracetam 500 mg/ Sodium (Chloride) 105 mls @ 210 mls/hr IVPB Q12 [facility] Last Admin: 04/01/19 09:39 Dose: 210 mls/hr Levothyroxine Sodium (Synthroid) 75 mcg PEG DAILY@0630 [facility] Last Admin: 04/01/19 05:51 Dose: 75 mcg Lisinopril (Zestril) 20 mg PEG DAILY [facility] Last Admin: 04/01/19 09:44 Dose: 20 mg Lorazepam (Ativan) 0.5 mg IVP ONCE PRN PRN Reason: premedicate for mri Magnesium Hydroxide (Milk Of Magnesia) 30 ml PEG HS PRN PRN Reason: Constipation Memantine (Namenda) 10 mg PEG BID [facility] Last Admin: 04/01/19 09:44 Dose: 10 mg Multivitamins/Minerals (Therapeutic-M Tab) 1 tab PO DAILY [facility] Last Admin: 04/01/19 09:43 Dose: 1 tab - Labs Labs: 04/01/19 06:15 04/01/19 06:15 PT 17.1 Seconds (9.8-13.1) H 03/29/19 21:04 INR 1.5 03/29/19 21:04 APTT 32.1 Seconds (25.6-37.1) 03/29/19 21:04 - Constitutional Appears: No Acute Distress, Chronically Ill - Head Exam Head Exam: NORMAL INSPECTION - Eye Exam Eye Exam: PERRL - ENT Exam Additional comments: Hard of hearing on left - Neck Exam Neck Exam: Normal Inspection - Respiratory Exam Respiratory Exam: Decreased Breath Sounds (at bases) - Cardiovascular Exam Cardiovascular Exam: Irregular Rhythm - GI/Abdominal Exam GI & Abdominal Exam: Soft, Normal Bowel Sounds Additional comments: Peg tube - Extremities Exam Extremities Exam: Normal Inspection - Back Exam Additional comments: Rash on sacrum - Neurological Exam Additional comments: Eyes open, confused, follows simple commands, mumbling words, generalized weakness, no focal motor/sensory deficit. - Skin Skin Exam: Warm Assessment and Plan (1) Altered mental status Status: Acute (2) Seizure Status: Acute (3) Hyperlipidemia Status: Acute (4) History of CVA with residual deficit Status: Chronic - Assessment and Plan (Free Text) Plan: Discussed with Neurology to have Brain MRI with low sedation, continue Keppra and rest of Tx.
--- NOTE | 2019-04-01 14:30 | US ---
Date of service: 04/01/2019 PROCEDURE: Duplex ultrasound of the carotid and vertebral arteries. HISTORY: AMS COMPARISON: None available. TECHNIQUE: Grayscale and duplex Doppler evaluation of the cervical carotid and vertebral arteries were performed. The common carotid, carotid bifurcations and cervical ICA and proximal ECA were evaluated. The vertebral arteries were evaluated for gross patency and direction. FINDINGS: RIGHT CAROTID ARTERIES: Common Carotid Artery: Maximal flow velocity of 61.6 cm/s. Carotid Bifurcation: Intimal thickening is present Internal Carotid Artery:Heterogeneous plaque formation. Maximal flow velocity of 42.4 cm/s. External Carotid Artery (proximal branches): Maximal flow velocity of 40.3 cm/s. ICA/CCA Ratio: 0.7 LEFT CAROTID ARTERIES: Common Carotid Artery: Maximal flow velocity of 67.6 cm/s. Carotid Bifurcation: Intimal thickening is present Internal Carotid Artery:Heterogeneous plaque formation. Maximal flow velocity of 36.7 cm/s. External Carotid Artery (proximal branches): Maximal flow velocity of 34.6 cm/s. ICA/CCA Ratio: 0.5 VERTEBRAL ARTERIES: Right Vertebral Artery: Patent. Antegrade flow. Left Vertebral Artery: Patent. Antegrade flow. OTHER FINDINGS: Atherosclerotic calcification present. IMPRESSION: Right ICA degree of stenosis: Less than 50% Left ICA degree of stenosis: Less than 50% Reference Internal Carotid Artery (ICA) Peak Systolic Velocity (PSV) for above: 1. Less than 50% stenosis less than 125 cm/s peak systolic velocity 2. 50-69% stenosis 125-230cm/s peak systolic velocity 3. Greater than 70% but less than near occlusion greater than 230 cm/s peak systolic velocity
[2019-04-01 16:37] LABS: HDL CHOLESTEROL 22 MG/DL (30-70)
[2019-04-01 16:48] LABS: LDL CHOLESTEROL 54 mg/dL (0-129)
--- NOTE | 2019-04-01 19:23 | CARD ---
APPROVED REPORT Date of service: 04/01/2019 EKG Measurement Heart [id number] <Conclusion> Atrial fibrillation Nonspecific T wave abnormality Abnormal ECG
[2019-04-02] MEDS: Levothyroxine 75 MCG TAB PEG SCH (05:32)
[2019-04-02] MEDS: Multivitamin With Minerals Tab PO SCH (09:16)
[2019-04-02] MEDS: Artificial Tears Opht Soln OU SCH ×4 (09:16→21:54)
[2019-04-02] MEDS: Famotidine 40 MG/5 ML PEG SCH (09:16)
[2019-04-02] MEDS: levETIRAcetam 500 MG in Sodium Chloride 0.9% 100 ML IVPB SCH (09:18)
--- NOTE | 2019-04-02 11:34 | CP.PCM.PN ---
Subjective - Date & Time of Evaluation Date of Evaluation: 04/02/19 Time of Evaluation: 11:32 - Subjective Subjective: Neuro Follow-Up: Mrs. Alexandra was evaluated this morning at bedside. Per nursing, pt continues to be more alert compared to when she was first admitted. When I saw her she was able to nod and shake head in response to questions; denies any complaints. She is still nonverbal but moans on/off during exam. Pt appears comfortable; has baseline dementia. ROS unremarkable. Objective - Vital Signs/Intake and Output Vital Signs (last 24 hours): Temp Pulse Resp BP Pulse Ox 97.6 F 96 H 20 144/79 95 04/02/19 08:09 04/02/19 09:20 04/02/19 08:09 04/02/19 09:20 04/02/19 08:09 - Medications Medications: Current Medications Acetaminophen (Tylenol 650mg/20.3ml Solution Ud) 650 mg PEG Q4 PRN PRN Reason: Pain, Mild (1-3) Acetaminophen (Tylenol 650mg/20.3ml Solution Ud) 650 mg PEG Q4 PRN PRN Reason: FEVER>100.4 Amlodipine Besylate (Norvasc) 5 mg PEG DAILY [facility] Last Admin: 04/02/19 09:19 Dose: 5 mg Apixaban (Eliquis) 2.5 mg PEG BID [facility]; Protocol Last Admin: 04/02/19 09:17 Dose: 2.5 mg Artificial Tears (Artificial Tears) 2 drop OU QID [facility] Last Admin: 04/02/19 09:16 Dose: 2 drop Aspirin (Aspirin Chewable) 81 mg PEG DAILY [facility] Last Admin: 04/02/19 09:16 Dose: 81 mg Atorvastatin Calcium (Lipitor) 80 mg PEG DAILY [facility] Last Admin: 04/02/19 09:19 Dose: 80 mg Bisacodyl (Dulcolax) 10 mg IN DAILY PRN PRN Reason: Constipation Carvedilol (Coreg) 25 mg PEG BID [facility] Last Admin: 04/02/19 09:17 Dose: 25 mg Clonidine HCl (Catapres Tts1 0.1 Mg/24 Hr) 1 patch TD QWK [facility] Clotrimazole (Lotrimin 1% Cream) 1 applic TOP BID [facility] Last Admin: 04/02/19 09:19 Dose: 1 applic Famotidine (Pepcid) 20 mg PEG DAILY [facility] Last Admin: 04/02/19 09:16 Dose: 20 mg Home Med (Cyclosporine [Restasis]) 0.05 % OP DAILY [facility] Home Med (Pilocarpine [Salagen Tab]) 5 mg PEG DAILY [facility] Ceftriaxone Sodium 1 gm/ (Sodium Chloride) 100 mls @ 100 mls/hr IVPB DAILY [facility]; Protocol Levetiracetam (Keppra) 500 mg PO BID [facility] Levothyroxine Sodium (Synthroid) 75 mcg PEG DAILY@0630 [facility] Last Admin: 04/02/19 05:32 Dose: 75 mcg Lisinopril (Zestril) 20 mg PEG DAILY [facility] Last Admin: 04/02/19 09:20 Dose: 20 mg Magnesium Hydroxide (Milk Of Magnesia) 30 ml PEG HS PRN PRN Reason: Constipation Memantine (Namenda) 10 mg PEG BID [facility] Last Admin: 04/02/19 09:19 Dose: 10 mg Multivitamins/Minerals (Therapeutic-M Tab) 1 tab PO DAILY [facility] Last Admin: 04/02/19 09:16 Dose: 1 tab - Labs Labs: 04/01/19 06:15 04/01/19 06:15 PT 17.1 Seconds (9.8-13.1) H 03/29/19 21:04 INR 1.5 03/29/19 21:04 APTT 32.1 Seconds (25.6-37.1) 03/29/19 21:04 - Constitutional Appears: Non-toxic, No Acute Distress, Other (baseline dementia; nonverbal; follows commands) - Head Exam Head Exam: ATRAUMATIC, NORMAL INSPECTION, NORMOCEPHALIC - Eye Exam Eye Exam: EOMI, Normal appearance, PERRL Pupil Exam: NORMAL ACCOMODATION, PERRL - ENT Exam ENT Exam: Mucous Membranes Moist - Neck Exam Neck Exam: Normal Inspection - Respiratory Exam Respiratory Exam: NORMAL BREATHING PATTERN - GI/Abdominal Exam Additional comments: peg - Extremities Exam Extremities Exam: absent: Calf Tenderness, Full ROM, Pedal Edema, Tenderness Additional comments: Able to manager background b/l hands and raise both arms Able to move b/l feet - Neurological Exam Neurological Exam: Altered, Awake Additional comments: Pt awake though nonverbal with me; moans during exam; follows commands. Baseline dementia. Able to nod and shake head in response to questions. Motor: Able to raise BUE, proximal strength approx 3/5, distal 3-4/5; Unable to raise BLE off bed, can move feet, distal strength 2-3/5. Does not appear to have sensory deficits No tremors or abnormal movements noted - Psychiatric Exam Additional comments: baseline dementia follows commands; appears comfortable - Skin Skin Exam: Normal Color Assessment and Plan (1) Toxic metabolic encephalopathy Assessment & Plan: Imaging reviewed: -Carotid U/S (04/01/19): VERTEBRAL ARTERIES: Right Vertebral Artery: Patent. Ant egrade flow. Left Vertebral Artery: Patent. Antegrade flow. OTHER FINDINGS: Atherosclerotic calcification present. Right ICA degree of stenosis: Less than 50%. Left ICA degree of stenosis: Less than 50%. -EEG (04/01/19): This is a normal awake and drowsy electroencephalogram. -CT Head (03/30/19): Extensive and severe chronic periventricular white matter ischemic changes with more discrete large chronic left frontal lobe infarct. There also chronic appearing bilateral basal nuclei infarcts. Moderate to significant generalized volume loss. -Will hold off on MRI for now; MRI checklist is still pending since yesterday anyway; pt seems to be improving with Abx for treatment of UTI. Pt's AMS may be likely 2/2 her dementia with an active infectious process. Reconsider imaging if pt does not continue to improve. -Continue treatment of UTI per primary team. -Continue Keppra 500 mg PEG BID and seizure precautions. -Continue Eliquis for secondary stroke prevention. -Pt may be [facility]/c back to the [facility] with abx if she remains stable. Reconsult neuro prn if there is a change in pt's condition. Discussed plan with primary team. Greer Alonzo, DNP, SYSTEMS INTEGRATION ADVISOR d/w Dr. Gonsalves Status: Acute
--- NOTE | 2019-04-02 16:40 | CP.PCM.PN ---
Subjective - Date & Time of Evaluation Date of Evaluation: 04/02/19 Time of Evaluation: 10:00 - Subjective Subjective: F/U AMS Pt sleepy, arousable, not following commands, attempt to mumbling sounds. Objective - Vital Signs/Intake and Output Vital Signs (last 24 hours): Temp Pulse Resp BP Pulse Ox 97.6 F 76 19 96/60 L 100 04/02/19 16:16 04/02/19 16:16 04/02/19 16:16 04/02/19 16:16 04/02/19 16:16 - Medications Medications: Current Medications Acetaminophen (Tylenol 650mg/20.3ml Solution Ud) 650 mg PEG Q4 PRN PRN Reason: Pain, Mild (1-3) Acetaminophen (Tylenol 650mg/20.3ml Solution Ud) 650 mg PEG Q4 PRN PRN Reason: FEVER>100.4 Amlodipine Besylate (Norvasc) 5 mg PEG DAILY [facility] Last Admin: 04/02/19 09:19 Dose: 5 mg Apixaban (Eliquis) 2.5 mg PEG BID [facility]; Protocol Last Admin: 04/02/19 09:17 Dose: 2.5 mg Artificial Tears (Artificial Tears) 2 drop OU QID [facility] Last Admin: 04/02/19 12:44 Dose: 2 drop Aspirin (Aspirin Chewable) 81 mg PEG DAILY [facility] Last Admin: 04/02/19 09:16 Dose: 81 mg Atorvastatin Calcium (Lipitor) 80 mg PEG DAILY [facility] Last Admin: 04/02/19 09:19 Dose: 80 mg Bisacodyl (Dulcolax) 10 mg [place] DAILY PRN PRN Reason: Constipation Carvedilol (Coreg) 25 mg PEG BID [facility] Last Admin: 04/02/19 09:17 Dose: 25 mg Clonidine HCl (Catapres Tts1 0.1 Mg/24 Hr) 1 patch TD QWK [facility] Clotrimazole (Lotrimin 1% Cream) 1 applic TOP BID [facility] Last Admin: 04/02/19 09:19 Dose: 1 applic Famotidine (Pepcid) 20 mg PEG DAILY [facility] Last Admin: 04/02/19 09:16 Dose: 20 mg Home Med (Cyclosporine [Restasis]) 0.05 % OP DAILY [facility] Home Med (Pilocarpine [Salagen Tab]) 5 mg PEG DAILY [facility] Ceftriaxone Sodium 1 gm/ (Sodium Chloride) 100 mls @ 100 mls/hr IVPB DAILY [facility]; Protocol Last Admin: 04/02/19 15:40 Dose: 100 mls/hr Levetiracetam (Keppra) 500 mg PO BID [facility] Levothyroxine Sodium (Synthroid) 75 mcg PEG DAILY@0630 [facility] Last Admin: 04/02/19 05:32 Dose: 75 mcg Lisinopril (Zestril) 20 mg PEG DAILY [facility] Last Admin: 04/02/19 09:20 Dose: 20 mg Magnesium Hydroxide (Milk Of Magnesia) 30 ml PEG HS PRN PRN Reason: Constipation Memantine (Namenda) 10 mg PEG BID [facility] Last Admin: 04/02/19 09:19 Dose: 10 mg Multivitamins/Minerals (Therapeutic-M Tab) 1 tab PO DAILY [facility] Last Admin: 04/02/19 09:16 Dose: 1 tab - Labs Labs: 04/01/19 06:15 04/01/19 06:15 PT 17.1 Seconds (9.8-13.1) H 03/29/19 21:04 INR 1.5 03/29/19 21:04 APTT 32.1 Seconds (25.6-37.1) 03/29/19 21:04 - Constitutional Appears: Chronically Ill - Head Exam Head Exam: NORMAL INSPECTION - Eye Exam Eye Exam: PERRL - ENT Exam Additional comments: Hard of hearing on L - Neck Exam Neck Exam: Normal Inspection - Respiratory Exam Respiratory Exam: Decreased Breath Sounds (at bases) - Cardiovascular Exam Cardiovascular Exam: Irregular Rhythm - GI/Abdominal Exam GI & Abdominal Exam: Soft, Normal Bowel Sounds Additional comments: Peg-Tube - Extremities Exam Extremities Exam: Normal Inspection - Back Exam Additional comments: Rash on sacrum - Neurological Exam Additional comments: Arousable, generalized weakness, not following commands, attempt mumbling words, L hemiplegia. - Skin Skin Exam: Warm Assessment and Plan (1) Altered mental status Status: Acute (2) Seizure Status: Acute (3) Hyperlipidemia Status: Acute (4) History of CVA with residual deficit Status: Chronic - Assessment and Plan (Free Text) Plan: F/U MRI of the Brain today, U C-S: Providencia Stuartii, add Rocephin, continue Keppra and rest of Tx.
[2019-04-02] MEDS: levETIRAcetam 100 mg/ml (5ml) Oral Syringe PO SCH (21:02)
[2019-04-03] MEDS: Levothyroxine 75 MCG TAB PEG SCH (05:36)
[2019-04-03] MEDS ORDERED: Lidocaine Hydrochloride 5 ML INJ ONE (10:52)
[2019-04-03 11:08] VITALS: RESP 19
--- NOTE | 2019-04-03 11:11 | PCM.SURG1 ---
Surgeon's Initial Post Op Note - Surgeon's Notes Surgeon: Samm Delgado MD Sewer Connector: NONE Type of Anesthesia: Local Pre-Operative Diagnosis: Poor venous access Operative Findings: Patent right basilic vein Post-Operative Diagnosis: Poor venous access Operation Performed: PICC placement right arm, Specimen/Specimens Removed: NONE Estimated Blood Loss: EBL {In ML}: 2 Blood Products Given: N/A Drains Used: No Drains Post-Op Condition: Fair Date of Surgery/Procedure: 04/03/19 Time of Surgery/Procedure: 11:10
[2019-04-03] MEDS: levETIRAcetam 100 mg/ml (5ml) Oral Syringe PO SCH ×3 (11:16→17:54)
[2019-04-03] MEDS: Artificial Tears Opht Soln OU SCH ×4 (11:16→17:52)
[2019-04-03] MEDS: Multivitamin With Minerals Tab PO SCH ×2 (11:17→11:47)
[2019-04-03] MEDS: Famotidine 40 MG/5 ML PEG SCH ×2 (11:17→11:46)
--- NOTE | 2019-04-03 11:18 | VASCULAR ---
PROCEDURE: Date of procedure: 04/03/2019 Procedure: 1. Placement of a right arm PICC with ultrasound and fluoroscopic guidance, CPT 67849 2. PICC tip confirmation with spot radiograph and is in the superior vena cava Medications: 1 percent lidocaine Total Fluoro time: 2.6 Seconds Radiation: 0.23 MGy EBL: 2 cc HISTORY: Infection requiring long-term IV antibiotics TECHNIQUE: Following informed consent and procedure time-out, the patient was placed supine on the interventional table and the right arm prepped and draped in the usual sterile fashion. Ultrasound showed a patent and compressible right basilic vein. After the skin was anesthetized with lidocaine, the basilic vein was accessed with micro micropuncture technique using ultrasound guidance. A guidewire was then advanced under fluoroscopic guidance into the superior vena cava. An image documenting ultrasound guidance for vascular access was permanently saved. The length of the single-lumen 4 [place] PICC was trimmed to 33 centimeters and advanced through a peel-away sheath. The PICC was position with tip of PICC confirm a spot radiograph the superior vena cava. The PICC was secured to the patient's skin. The PICC was flushed. A biopatch and sterile dressing was applied. IMPRESSION: Placement of a single-lumen 4 [place]cu[place]orean PICC trimmed to 33 centimeters via right basilic vein. The tip of the PICC is confirmed with spot radiograph and is in the superior vena cava.
[2019-04-03 16:11] VITALS: BP 90/60; PULSE 93; TEMP 97.6; O2SAT 100
--- NOTE | 2019-04-05 13:22 | PQF ---
PROVIDER RESPONSE TEXT: History of CHF: Not a chronic condition at this time. REVIEWER QUERY TEXT: Heart Failure Acuity and Type Physician?s Documentation Request This Form is Not a Permanent Document in the Medical Record Pt Name: TAYLER FELDMAN MR #: [id number] Payor: MEDICARE PART [id number] Adm Date: 03/29/2019 11:31:00 PM Reviewer: Lashae Frye Ext. Query Date: 04/01/2019 2:02:00 PM Heart Failure Acuity and Type [id number] By submitting this query, we are merely seeking further clarification of documentation to accurately reflect all conditions that you are monitoring, evaluating, treating or that extend the hospitalizati on or utilize additional resources of care. Please utilize your independent clinical judgment when ad dressing the question(s) below. Dear Doctor Bryan Smith, The patient?s Clinical Indicators include: --- A hx. of Congestive Heart Failure is documented in the Medical Record. Please document the type and a cuity (includes probable or suspected) if known: OR: No CHF:history only and not a chronic condition Such as: Type: -- Combined systolic and diastolic (heart failure with reduced ejection fraction and diastolic) dysfu nction -- Diastolic (HFpEF) -- Systolic (HFrEF) -- Left heart failure -- Right heart failure -- Right heart failure due to left heart failure -- High output failure -- End stage heart failure -- Other, please specify Acuity: -- Acute -- Chronic -- Acute on chronic -- Other, please specify CXR: Impression: Hazy opacity in the right mid to lower lung field consistent with some combination of small to medium-sized effusion and mild atelectasis and or infiltrate.Suspect mild left basilar at electasis. H and P includes: Hx. of CHF -coreg PLEASE DOCUMENT ANY ADDITIONAL DIAGNOSES AND/OR SPECIFICITY IN THE PROGRESS NOTES AND/OR DISCHARGE BENAVIDEZ MMARY. Clinically unable to determine/unknown Disagree with the above request Need to discuss Query created by: Lashae Frye on 04/01/2019 2:02 PM Electronically signed by: Bryan Smith MD 04/05/2019 1:18 PM
== END 2019-04-03 20:40 | DRG 100 ==
LOC: H.ER 19:07 → H.ERHOLD 23:31 → OBSVTOIN 23:31 → H.MEDSURG1 03-30 04:13
PROVIDERS: ADMIT Internal Medicine Pulmonary Disease; ATTEND Internal Medicine Pulmonary Disease
PROC: 02HV33Z Insertion of Infusion Device into Superior Vena Cava, Percutaneous Approach (ICD-10-PCS; principal; 2019-04-03)
PROC: B518ZZA Fluoroscopy of Superior Vena Cava, Guidance (ICD-10-PCS; 2019-04-03)
PROC: B548ZZA Ultrasonography of Superior Vena Cava, Guidance (ICD-10-PCS; 2019-04-03)
PROC: 3E04329 Introduction of Other Anti-infective into Central Vein, Percutaneous Approach (ICD-10-PCS; 2019-04-03)
DX: G40.89 Other seizures (principal); G92 Toxic encephalopathy; N39.0 Urinary tract infection, site not specified; I69.351 Hemiplegia and hemiparesis following cerebral infarction affecting right dominant side; F03.90 Unspecified dementia, unspecified severity, without behavioral disturbance, psychotic disturbance, mood disturbance, and anxiety; I48.2 Chronic atrial fibrillation; I11.0 Hypertensive heart disease with heart failure; Z93.1 Gastrostomy status; M35.00 Sjogren syndrome, unspecified; E03.9 Hypothyroidism, unspecified; I50.9 Heart failure, unspecified; E78.5 Hyperlipidemia, unspecified; E78.00 Pure hypercholesterolemia, unspecified; H91.92 Unspecified hearing loss, left ear; M19.90 Unspecified osteoarthritis, unspecified site; F32.9 Major depressive disorder, single episode, unspecified; Z79.01 Long term (current) use of anticoagulants; Z79.82 Long term (current) use of aspirin; Z87.01 Personal history of pneumonia (recurrent)